=== PATIENT | female | born 1990 | race Caucasian/White ===

== ENCOUNTER 2022-11-05 11:48 | Emergency (ER) | payer SELFPAY ==
[2022-11-05 12:11] VITALS: BP 133/79; PULSE 113; RESP 18; TEMP 36; O2SAT 100
--- NOTE | 2022-11-05 13:23 | ED.URI ---
HPI - URI/Sore Throat General Chief Complaint: Upper Respiratory Infection Stated Complaint: Sore Throat,Congestion,Rash Source: patient Mode of arrival: ambulatory History of Present Illness HPI Narrative: This is a 31-year-old female who presented to our urgent care with complaints of a sore throat and a body rash on her trunk and upper extremities that started on Wednesday. Patient notes that she has white patches and enlarged tonsils. The patient denies SOB, CP, palpitation, extremity numbness, lightheadedness, dizziness, constipation, diarrhea, chills, or fever. Related Data Home Medications Medication Instructions Recorded Confirmed multivitamin 1 tablet PO DAILY 05/27/20 11/05/22 Allergies Allergy/AdvReac Type Severity Reaction Status Date / Time No Known Allergies Allergy Verified 11/05/22 12:57 Review of Systems Review of Systems: A 14 organ system Review of Systems was performed and pertinent positives included in the HPI, otherwise remaining ROS is negative. [facility] Past Medical History Medical History (Updated 11/05/22 @ 13:23 by SHAD Ferrer) Depression Surgical History Surgical History (Updated 05/27/20 @ 07:51 by Jenna Lewis [facility]) [place] teeth removed Family History Family History Mother Patient's mother is in good health Father Acute myocardial infarction, Onset Age: 58 Social History Social History Smoking status: Never smoker Alcohol intake: current Exam Narrative: GENERAL: This is a well-nourished, well-developed patient, in no apparent distress. HEAD: normocephalic, atraumatic. EYES: PERRL. Sclera clear/white. Vision is grossly intact. EARS: External ears normal, auditory canals clear and without drainage, TMs normal without perforation. Hearing grossly intact. NOSE: External nose normal with no obvious nasal discharge, nares without redness, no rhinorrhea. THROAT: Mucous membranes moist, posterior pharynx with edema and erythema enlarged tonsils with white patches. NECK: Neck supple, non-tender without lymphadenopathy, masses or thyromegaly. CARDIOVASCULAR: Regular rate and rhythm without murmurs, gallops, or rubs. RESPIRATORY: Clear to auscultation. Breath sounds equal bilaterally. No wheezes, rales, or rhonchi. GASTROINTESTINAL: Abdomen soft, non-tender, nondistended. Bowel sounds are active. No hepato-splenomegaly, or palpable masses. No guarding. SKIN: warm, intact with no suspicious lesions or rash, good texture and turgor. NEURO: awake, alert, and oriented to person, place and time. There were no obvious focal neurologic abnormalities. EXTREMITIES: Normal range of motion. No edema. No calf tenderness. Course Course Level of Care: Express Care Visit Vital Signs Vital signs: Vital Signs Temperature 96.8 F L 11/05/22 12:11 Pulse Rate 113 H 11/05/22 12:11 Respiratory Rate 18 11/05/22 12:11 Blood Pressure 133/79 11/05/22 12:11 Pulse Oximetry 100 11/05/22 12:11 Oxygen Delivery Room Air 11/05/22 12:11 Temperature 96.8 F L 11/05/22 12:11 Pulse Rate 113 H 11/05/22 12:11 Respiratory Rate 18 11/05/22 12:11 Blood Pressure 133/79 11/05/22 12:11 Pulse Oximetry 100 11/05/22 12:11 Oxygen Delivery Room Air 11/05/22 12:11 MDM - URI/Sore Throat MDM Narrative Medical decision making narrative: Patient discharged home with Augmentin for pharyngitis unable to complete strep testing due to lack of kids Differential Diagnosis Differential diagnosis: Likely upper respiratory infection, viral infection and pharyngitis Discharge Plan Discharge Clinical Impression: Pharyngitis, [place] Patient Disposition: Home, Self-Care Condition: Stable Instructions: Antibiotic Form, Pharyngitis (ED), Scarlet Fever (ED) Additional Instructions: -Eat things that are easy to swallow, like tea or soup
== END 2022-11-05 13:25 | disposition home or self-care (01) ==
PROVIDERS: Emergency Provider Nurse Practitioner; PCP Internal Medicine
DX: J02.9 Acute pharyngitis, unspecified (principal); A38.9 Scarlet fever, uncomplicated
CPT/HCPCS: 99213; G0463